=== PATIENT | male | born 1930 ===

== ENCOUNTER → 2016-07-06 | Outpatient (CLI) | payer OTHER | LOC: BHLMT 11:30 | PROVIDERS: ATTEND Internal Medicine Cardiovascular Disease | DX: I25.10 Atherosclerotic heart disease of native coronary artery without angina pectoris (principal); I48.2 Chronic atrial fibrillation; J44.9 Chronic obstructive pulmonary disease, unspecified; E78.5 Hyperlipidemia, unspecified; I73.9 Peripheral vascular disease, unspecified; Z95.2 Presence of prosthetic heart valve; Z78.9 Other specified health status; Z95.5 Presence of coronary angioplasty implant and graft | CPT/HCPCS: 93005-PO ==